=== PATIENT | male | born 1955 | race Caucasian/White ===

== ENCOUNTER 2021-01-25 09:27 | Emergency (ER) | payer MEDICARE, SELFPAY ==
--- NOTE | ~2021-01-25 | XR_ITS ---
EXAMINATION: XR tibia fibula LT 2V DATE: 01/25/2021 10:43 INDICATION: Left lower leg pain. TECHNIQUE: 2 views of left tibia and fibula were obtained. COMPARISON: None. FINDINGS: Bone alignment is normal. No fracture. There is mild left knee osteoarthritis. IMPRESSION: 1. Mild left knee osteoarthritis. Reviewed, dictated and finalized at location A. PROFESSIONAL
--- NOTE | ~2021-01-25 | XR_ITS ---
EXAMINATION: XR femur LT min 2V DATE: 01/25/2021 10:44 INDICATION: Left thigh pain. TECHNIQUE: 2 views of left femur on 4 radiographs were obtained. COMPARISON: None. FINDINGS: Bone alignment is normal. No fracture. There is mild osteoarthritis of left hip and left kn ee. No knee joint effusion. IMPRESSION: 1. Mild polyarticular osteoarthritis. Reviewed, dictated and finalized at location A. [facility] [employer]
[2021-01-25 09:38] VITALS: BP 154/94; PULSE 66; RESP 20; TEMP 36.4; O2SAT 99
--- NOTE | 2021-01-25 10:07 | ED.GENADULT ---
HPI - General Adult General Chief complaint: Extremity Problem,Nontraumatic Stated complaint: Leg Pain Time Seen by Provider: 01/25/21 10:02 History of Present Illness HPI narrative: Patient is a 65-year-old male with history of chronic back pain who comes to the ED today complaining of left leg pain. Patient reports he has had pain located over entire left leg from the knee down for the last few days. Reports that he was doing an activity last night and felt a pop in his lower leg and the pain has been much worse since then. There is no edema. There is no numbness or tingling. There is no systemic symptoms. He notices the pain whenever he is trying to walk and whenever he flexes his knee while externally rotating his hip. At rest he has no pain. And the pain is not reproducible with palpation. Took some NSAIDs last night. Applied heat last night. Did not try any medicines this morning. No previous history of similar symptoms. Related Data Home Medications Medication Instructions Recorded Confirmed atorvastatin 01/25/21 fluticasone propionate INTRANASAL 01/25/21 Allergies Allergy/AdvReac Type Severity Reaction Status Date / Time Penicillins Allergy Unknown WAS INFANT Verified 01/25/21 11:35 Review of Systems Constitutional: Constitutional: Reports as per HPI, Denies fever(s), Denies night sweats and Denies weakness Cardiovascular: Cardiovascular: Denies chest pain, Denies edema, Denies leg edema, Denies dyspnea and Denies orthopnea Respiratory: Respiratory: Denies cough and Denies dyspnea Gastrointestinal: Gastrointestinal: Denies abdominal pain, Denies constipation, Denies diarrhea, Denies nausea and Denies vomiting Musculoskeletal: Musculoskeletal: Reports as per HPI, Denies joint swelling, Denies numbness and Denies tingling Comments: See HPI Neurologic: Denies Abnormal speech present, Denies abnormal gait, Denies numbness, Denies tingling and Denies weakness Psychiatric: Psychiatric: Denies homicidal ideation and Denies suicidal ideation Exam Narrative: Pleasant, well-appearing, no distress Const: General: cooperative, healthy appearing, comfortable, no acute distress, well developed, alert, awake and Physically active Orientation/consciousness: patient oriented x3 HENMT: Head: normal to inspection, normocephalic and atraumatic Ears: external ears normal General nose exam: Normal external nose present Eyes: Pupils: Equal, round and reactive pupils present EOM: EOMs intact bilaterally Neck: Neck: normal visual inspection Chest: Chest palpation & inspection: normal inspection of the chest and no tenderness Resp: Effort & Inspection: normal respiratory effort and able to speak in complete sentences Auscultation: clear to auscultation bilaterally Cardio: Rate: regular rate Rhythm: regular rhythm GI: Inspection: normal to inspection GI Palp: No abdominal tenderness : General: Yes no CVA tenderness Back/Spine/Pelvis: Back: no CVA tenderness Other: Nontender with deep palpation Skin: General skin exam: normal color and no rashes or lesions noted Lesions: no lesions Other: No erythema or any signs of infection. Normal temperature to touch. Neuro: General: patient oriented x3, no focal motor deficits and CN's II-XI intact bilaterally Cranial nerves: Yes Equal, round and reactive pupils present Speech: No Abnormal speech present Extrem: General: normal to inspection and full ROM Other: Left lower extremity is nontender to palpate with deep palpation. There is no significant edema. Neurovascular intact throughout. Full range of motion throughout. Negative straight leg raise test. Normal strength throughout. Psych: Appearance: grossly normal and well kempt Mental Status: mental status grossly normal Speech and movement: Normal speech and movement present Affect: normal affect Thought process: Normal thought process present Course Course Emergency Course: 1020: Discussed with damon
[2021-01-25] MEDS: KETOROLAC 30 MG/ML VIAL (*BKC) IM (10:48)
[2021-01-25] MEDS: ACETAMINOPHEN 325 MG TABLET 650 MG PO (10:49)
[2021-01-25 11:31] VITALS: BP 156/99; PULSE 69; RESP 18; O2SAT 97
[2021-01-25 13:00] VITALS: BP 144/100; PULSE 66; RESP 16; TEMP 36.6; O2SAT 98
== END 2021-01-25 13:03 | disposition home or self-care (01) ==
PROVIDERS: Emergency Provider Emergency Medicine; PCP Internal Medicine
DX: M79.605 Pain in left leg (principal); Z88.0 Allergy status to penicillin
CPT/HCPCS: 73552; 73590; 96372; 99283; A9270; J1885